=== PATIENT | female | born 1950 | race Caucasian/White ===

== ENCOUNTER 2017-04-20 08:00 | Day surgery (SDC) | payer MEDICARE, BC ==
[~2017-04-20 08:00] MED LIST: RINGERS SOLUTION,LACTATED 1,000 ML IV PRN
[2017-04-20] MEDS ORDERED: RINGERS SOLUTION,LACTATED 1,000 ML IV ONE (08:50)
[2017-04-20] MEDS ORDERED: RINGERS SOLUTION,LACTATED 1,000 ML IV PRN (09:26)
[2017-04-20 10:42] VITALS: BP 116/52
--- NOTE | 2017-04-20 13:44 | OR ---
Operative Report - Dictated Report Narrative: OPERATIVE REPORT DATE OF OPERATION: 04/20/2017 PREOPERATIVE DIAGNOSIS: No prior dedicated colon studies POSTOPERATIVE DIAGNOSIS: Diverticulosis. 3 mm polyp at 70 cm (pathology pending) OPERATION: Colonoscopy with hot biopsy forceps polypectomy at 70 cm SURGEON: Mira Palafox MD ANESTHESIA: ASHLEY Nowak CRNA INDICATIONS FOR PROCEDURE: The patient is a 66-year-old female referred by Dr. Richardson. The patient has had no previous dedicated colon studies. There is no family history of colon cancer. The patient is currently asymptomatic. FINDINGS: Mild to moderate sigmoid diverticulosis area 3 mm area of possible polypoid change 70 cm (pathology pending) NARRATIVE OF PROCEDURE: The patient was identified in the holding area, and prior to the administration of anesthetic, a multidisciplinary timeout was observed. With the patient in the left lateral position and after the administration of intravenous sedation, the perineum was inspected. There was no evidence of pilonidal disease or skin breakdown. The external appearance of the anus was normal. Sphincter tone was good. The flexible fiberoptic colonoscope was inserted into the rectum which was insufflated with air. The rectal mucosa and submucosal vascular pattern appeared normal, the prep was seen to be complete. The scope was advanced through the sigmoid colon, which contained numerous not impacted noninflamed diverticular openings. The scope was redirected up the descending colon, and around the splenic flexure where the triangular haustral architecture of the transverse colon was seen. The scope was advanced across the transverse colon, around the hepatic flexure to the cecum, where the confluence of tenia and the ileocecal valve were identified. The mucosa at this level appeared normal. The scope was then slowly withdrawn in a circular fashion so that all aspects of colonic mucosa were inspected. The colon was normal in course and caliber. The haustral architecture appeared well preserved throughout with no evidence of external compression. The mucosa and submucosal vascular pattern appeared normal, specifically there was no gross evidence to suggest colitis or inflammatory bowel disease and no AV malformations were seen. A 3 mm area of possible polypoid change and 70 cm was biopsied and thoroughly destroyed with electrocautery. The site was seen to be complete and hemostatic. The scope was gradually withdrawn to the level of the rectum. As much insufflated air as possible was removed. The scope was withdrawn from the patient and the procedure terminated. The patient tolerated the anesthetic and procedure well without complication and was transferred back to the ambulatory surgery area awake and in stable condition. The patient remained stable throughout a period of postoperative observation. She denied abdominal discomfort, was able to tolerate by mouth intake, and was up without assistance. I shared the operative findings with the patient and she was given copies of the photographs which appear in the medical record. She was discharged home with instructions not to engage in hazardous activity today , but may resume normal activity tomorrow, and advance diet as tolerated. She is to continue those medications as listed in the history and physical exam. I made arrangements to contact her with the biopsy reports and will make additional recommendations for treatment and follow-up based upon those results. Reviewed and electronically signed
== END 2017-04-20 08:01 ==
LOC: AMB 08:00
PROVIDERS: ATTEND Surgery
PROC: 0DBE8ZX Excision of Large Intestine, Via Natural or Artificial Opening Endoscopic, Diagnostic (ICD-10-PCS; principal; 2017-04-20 09:00)
DX: Z12.11 Encounter for screening for malignant neoplasm of colon (principal); K63.5 Polyp of colon; K57.30 Diverticulosis of large intestine without perforation or abscess without bleeding; I10 Essential (primary) hypertension; E78.5 Hyperlipidemia, unspecified; J45.909 Unspecified asthma, uncomplicated; F32.9 Major depressive disorder, single episode, unspecified; Z68.43 Body mass index [BMI] 50.0-59.9, adult

== ENCOUNTER 2021-01-01 06:56 | Observation (INO) ==
[~2021-01-01 06:56] MED LIST changes: +MORPHINE SULFATE 15 MG TABLET.SA PO PRN; -RINGERS SOLUTION,LACTATED 1,000 ML IV PRN; +ROPIVACAINE/CLONIDIN/KETOROLAC 50 ML SYRINGE IJ PRN; +TRANEXAMIC ACID 1,000 MG in NORMAL SALINE 100 ML IV PRN; +ceFAZolin SODIUM 1 GM VIAL IV PRN
[2021-01-01] MEDS ORDERED: ONDANSETRON HCL/PF 2 MG/ML VIAL ONE (07:33)
[2021-01-01] MEDS ORDERED: fentaNYL CITRATE/PF 50 MCG/ML AMPUL ONE (07:33)
[2021-01-01] MEDS ORDERED: LIDOCAINE HCL 20 ML VIAL ONE (07:33)
[2021-01-01] MEDS ORDERED: BUPIVACAINE HCL 50 ML VIAL IJ ONE (07:33)
[2021-01-01] MEDS ORDERED: PROPOFOL VIAL IV ONE (07:34)
[2021-01-01] MEDS ORDERED: ISOPROPYL ALCOHOL 480 APPL BTL MC ONE (07:38)
[2021-01-01] MEDS ORDERED: ceFAZolin SODIUM 1 GM VIAL ONE (07:39)
[2021-01-01] MEDS ORDERED: ROPIVACAINE/CLONIDIN/KETOROLAC 50 ML SYRINGE IJ ONE (07:39)
[2021-01-01] MEDS ORDERED: PROCHLORPERAZINE EDISYLATE 5 MG/ML VIAL IV PRN (07:43)
[2021-01-01] MEDS ORDERED: ONDANSETRON HCL/PF 2 MG/ML VIAL IV PRN ×2 (07:43→11:21)
[2021-01-01] MEDS ORDERED: diphenhydrAMINE HCL 50 MG/ML VIAL IV PRN ×2 (07:43→11:21)
[2021-01-01] MEDS ORDERED: HYDROmorphone HCL 2 MG/ML VIAL IV PRN (07:43)
[2021-01-01] MEDS ORDERED: NALOXONE HCL 0.4 MG/ML VIAL IV PRN (07:43)
--- NOTE | 2021-01-01 07:43 | ANES ---
Anesthesia Pre Procedure Eval Vitals/Labs: Last Vital Signs Temp 36.9 C 01/01/21 07:25 Pulse 67 01/01/21 07:25 Resp 14 01/01/21 07:25 BP 146/63 01/01/21 07:25 Pulse Ox 95 01/01/21 07:25 HOME MEDICATIONS Durable Medical Equipment See Dose Instructions .ROUTE .MEDSUPPLY #1 ea 06/01/19 [Last Taken Unknown] ascorbic acid (vitamin C) 1,000 mg tablet 1 g PO DAILY #30 tab 06/23/19 [Last Taken Unknown] albuterol sulfate 2.5 mg IH QID PRN #75 ml 10/03/19 [Last Taken Unknown] amlodipine 10 mg tablet See Rx Instructions .ROUTE .COMPLEX #90 unknown measurement unit code: tablet 06/26/20 [Last Taken 10/29/20] atorvastatin 10 mg tablet 10 mg PO HS #90 tab 08/30/20 [Last Taken Unknown] bupropion HCl 300 mg 24 hr tablet, extended release 300 mg PO DAILY #90 tab 09/12/20 [Last Taken Unknown] fluoxetine 40 mg capsule See Rx Instructions .ROUTE .COMPLEX #90 unknown measurement unit code: capsule 09/12/20 [Last Taken Unknown] lisinopril 40 mg tablet See Rx Instructions .ROUTE .COMPLEX #180 unknown measurement unit code: tablet 09/12/20 [Last Taken 10/29/20] aspirin 81 mg tablet,delayed release 81 mg PO DAILY 10/09/20 [Last Taken Unknown] Mucinex PO DAILY 10/29/20 [Last Taken Unknown] naproxen 375 mg tablet 375 mg PO Q8H PRN #60 tab 10/30/20 [Last Taken Unknown] potassium chloride 10 mEq tablet,extended release(part/cryst) See Rx Instructions .ROUTE .COMPLEX #180 unknown measurement unit code: tablet 11/26/20 [Last Taken Unknown] gabapentin 300 mg capsule 600 mg PO BID #180 cap 12/24/20 [Last Taken Unknown] metoprolol succinate 25 mg tablet,extended release 24 hr 25 mg PO DAILY #90 tab 12/24/20 [Last Taken Unknown] Allergies/Adverse Reactions: Allergies Allergy/AdvReac Type Severity Reaction Status Date / Time tolmetin sodium Allergy Severe Anaphylaxis Verified 01/01/21 07:33 [From Tolectin] meperidine AdvReac Mild N/V Verified 01/01/21 07:33 - Planned Procedure Planned Procedure: Right Arthroplasty Total Knee, Revision Medication List Reviewed:: Yes Allergies Verified: Yes Medical History (Last Reviewed 01/01/21 @ 07:41 by Omar Nowak CRNA) Loosening of prosthesis of right total knee replacement (Acute) Carpal tunnel syndrome on both sides (Resolved) Onset Date: Unknown JUAN on CPAP (Chronic) Onset Date: ~06/2017 9 cm H2O with heated humidifier Hypertension (Chronic) Onset Date: ~1979 Hyperlipidemia (Chronic) Onset Date: ~1979 Depression (Chronic) Onset Date: ~1979 Asthma (Chronic) Onset Date: ~1999 Arthritis (Chronic) Onset Date: ~2000 back, knees, hand Asthma attack (Acute) Onset Date: Unknown Bronchitis (Acute) Onset Date: Unknown Asthmatic bronchitis with exacerbation (Acute) Onset Date: Unknown DJD (degenerative joint disease), lumbosacral (Chronic) Onset Date: Unknown Morbid obesity (Chronic) Onset Date: Unknown Osteoarthritis (Chronic) Onset Date: Unknown Other problems (Chronic) Onset Date: Unknown Fracture of fibula, distal, right, closed (Acute) Onset Date: Unknown Fracture of lateral malleolus of fibula (Acute) Onset Date: Unknown Surgical History (Last Reviewed 01/01/21 @ 07:41 by Omar Nowak CRNA) Trigger finger, right (Resolved) Onset Date: ~11/02/17 Release of RT 3rd digit, RT 4th digit, RT 3rd digit MCP joint degenerative arthritis. GRMS by Dr. Barajas History of knee replacement (Resolved) Onset Date: ~07/09/[address] Hong History of knee replacement (Resolved) Onset Date: ~02/20/[address] Hong History of hysterectomy (Resolved) Onset Date: ~1984 H/O steroid therapy (Resolved) Onset Date: ~06/10/06 Also done 04/12/15. L4-5, L5-S1 H/O colonoscopy (Resolved) Onset Date: ~04/20/[address] Palafox - mild to moderate sigmoid diverticulosis, hyperplastic polyps. Recheck in 10 years. H/O knee surgery (Resolved) Onset Date: ~1993 arthroscopic, Left History of cataract surgery Onset Date: ~09/06 Dr Ramirez right and left Family History (Last Reviewed 01/01/21 @ 07:41 by Omar Nowak CRNA) Father , age 80 CVA (cerebral vascular accident) Hypertension Alzheimers disease Mother , age 70 Cancer renal cell with mets - Family Anesthesia History Family History:: no untoward family reactions to anesthesia, no familial bleeding tendencies, no family history of clotting disorders, no family history of premature - Airway/Neck/Teeth Within Normal Limits:: Yes Denture Type: Full upper Neck Exam: limited range of motion Mallampatti Score: 3 Thyromental (T-M) distance: > 6 cm Mandibulo Hyoid distance: > 3 cm - Respiratory Respiratory Physical: lungs clear Smoking Status: Never smoker Discussed smoking cessation including day of surgery: No Sleep Apnea currently treated: Yes - Cardiovascular Tolerate Activity: Fair Heart Sounds: S1 & S2, Regular - Gastrointestinal NPO since: mn - Anesthesia Assessment and Plan ASA Class: PS, III Anesthesia Type Plan: Block - Right ultrasound guided adductor canal nerve block for postop analgesia, Spinal
[2021-01-01] MEDS: RINGER'S SOLUTION,LACTATED 1,000 ML IV PRN ×3 (07:58→09:51)
[2021-01-01] MEDS ORDERED: DEXTROSE 5%-LACTATED RINGERS 1,000 ML IV PRN (11:21)
[2021-01-01] MEDS ORDERED: MORPHINE SULFATE 2 MG/ML DISP.SYRIN IV PRN (11:21)
[2021-01-01] MEDS ORDERED: ZOLPIDEM TARTRATE 5 MG TABLET PO PRN (11:21)
[2021-01-01] MEDS ORDERED: MAGNESIUM HYDROXIDE 30 ML UDC PO PRN (11:21)
[2021-01-01] MEDS ORDERED: ACETAMINOPHEN 500 MG TABLET PO PRN (11:21)
[2021-01-01] MEDS ORDERED: MAG HYDROX/ALUMINUM HYD/SIMETH 30 ML UDC PO PRN (11:21)
--- NOTE | 2021-01-01 11:21 | OR ---
Operative Report - Dictated Report Narrative: DATE OF PROCEDURE: 01/01/2021 PHYSICIAN: Arnel Eckert MD OD GRINDER OPERATOR: Evin Anguiano MD (provided an educated set of skilled hands that consisted with transfer, positioning, prepping, draping, traction, manipulation, irrigation, placement of implants, placement of instruments, closure of wounds, application of dressings, all of which could not be performed by the available surgical crew). 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 OPERATIONS AND PROCEDURES: Revision revision total knee arthroplasty, revision of surgical scar 25 cm. ANESTHESIA: Spinal plus regional plus periarticular local. ESTIMATED BLOOD LOSS: 100 mL TOURNIQUET TIME: 113 minutes at 325 mmHg. SPECIMENS: Implants for disposal, tissue for acute inflammation, culture x1. COMPLICATIONS: None. RETAINED IMPLANTS: DePuy Attune revision CRS size 5 femur cemented, 8 mm distal lateral augment, 4 mm distal medial, 8 mm posterior medial, and 4 mm posterior lateral augments attune revision press-fit stem 12 x 60 mm, attune revision porocoat fully coated femoral sleeve 30 mm, size 4 revision tibial baseplate rotating platform, revision tibial sleeve Porocoat fully coated 29 mm, revision press-fit stem 12 mm x 60 mm, CRS revision rotating platform insert size 5 x 18 mm crosslinked polyethylene. INDICATIONS FOR PROCEDURE: Mrs. Gore is a 70-year-old female who underwent a right total knee arthroplasty in the past. She was evaluated in the clinic with infection and loosening work up with noted tibial loosening without signs of infection. Infection workup was negative. Options for treatment were discussed including bracing, observation, and surgical revision. She wished to proceed with revision. The risks, benefits, and alternatives were discussed in clinic. The risk of , blood clots, bleeding, infection, nerve/tendon/blood vessel injury, malposition of implants, persistent pain, failure of implants, loosening, stiffness, need for additional procedures, and she wished to proceed. Consent was obtained in the clinic. PROCEDURE: After marking the correct extremity in the preoperative holding area, the patient was taken to the operating room. A timeout was performed. IV antibiotics consisting of Ancef was administered prior to procedure. A regional followed by spinal anesthetic was induced at my request by anesthesia. A Eldridge catheter was placed and a bump was placed under the surgical side buttock. A well-padded tourniquet was applied to the upper thigh. The leg was then prepped and draped in standard sterile fashion. She was noted to have range of motion of 0 to 110 degrees and had over 5 mm of gapping of varus and valgus stressing at all flexion points as well as an unstable drawer. After prepping and draping the leg in standard sterile fashion, exsanguinating the extremity and inflating the tourniquet to 325 mmHg, the previous anterior incision was excised over a length of 25 cm. Sharp dissection was carried through the skin. There were no retained nonabsorbable sutures. The medial retinaculum was marked out and a paramedial arthrotomy was made. There was notable effusion, but no gross signs of purulence or infectious appearing tissues. A near complete synovectomy was performed as there were multiple loose chondral bodies and synovial inflammation. The scar tissue was excised. The gutters were cleaned, and the previous polyethylene was excised. The knee was hyperflexed and attention was turned to the femur. A series of osteotomes were utilized in order to disengage the cement bone implant interface, removing the femoral component. We then turned our attention to the tibia. A series of osteotomes and saw was utilized in order to free the tissue to best of our abilities. The tibia was then removed. The implants revealed no signs of significant wear or damage. It was noted that the posterior cruciate ligament was disrupted. We then proceeded to prepare the tibia. The entry reamer up to a size 12 tibial reamer was utilized in order to repair the tibial canal. An entry reamer for the implant as well as a 29mm broach was utilized which gave good stability with good fill of the proximal tibial metaphysis. The proximal tibia was then cleaned and cut in order to provide a flat surface. The trial tray size 4 was then impacted with the trial sleeve and this was secured with a punch. Once it was felt that we prepared the tibia, we turned our attention to the femur. A series of reamers were utilized in order to open up the femoral canal up to a size 12. The femoral sleeve with broach was utilized up to a size 30mm. A clean-up distal cut was made, followed by the 3-in-1 cutting block, which was placed under tension in both flexion and extension in order to make sure that we had a symmetrical box. This was pinned in slight external rotation. Clean-up cuts were then made for augments, 4 mm distal lateral, 8 mm distal medial and 8 mm posterior medial and 4 mm posterior lateral. The trial components were assembled and impacted for trial. A series of inserts were utilized up to a size 18, which gave good stability in flexion and was able to reach maximal extension without hyperextension, stable to varus and valgus stressing as well as drawer. The patella tracked appropriately and overall, it was felt these were the appropriate implants. The implants were removed. The tissue was thoroughly irrigated with pulsatile saline irrigation. Prior to this, the tissue was sent to pathology for acute inflammation, was noted to have less than 5 neutrophils per high-powered field, and culture was also obtained and sent to pathology. Once the bone was thoroughly irrigated and dried, a periarticular joint injection of ropivacaine, Toradol, and epinephrine was placed. The cement was vacuum mixed per ticket puller's instructions. The implants were assembled on the back table, and cement was placed on the appropriate surfaces, avoiding any cement on the ingrown surface or the stems, and the implants were then impacted. Once the cement was fully cured, the extruded cement was removed. The final polyethylene insert was placed. The knee was again placed through range of motion and was able to reach full extension, flexion to 120 degrees with appropriate tracking of the patella, and no instability. A drain was placed exiting superolaterally. The tourniquet was deflated. It was noted that there is some bleeding which was evaluated and did not appear to be arterial in nature but significant from around the bony cuts. Using pressure hemostasis was obtained. Capsule was closed with interrupted #1 Vicryl. The deep tissues with 0 Vicryl, subcutaneous tissue with 3-0 Vicryl and 3-0 Monocryl, and the skin with a Dermabond dressing. A 4 x 4s, Sof-Rol and a full leg Darien was applied and the patient was awoken and transferred to postanesthesia care unit in stable condition. All sponge, needle, and instrument counts were correct prior to closing the wounds.
--- NOTE | 2021-01-01 11:56 | ANES ---
Post Anesthesia Discharge - Transfer of Care Transfer of Care handoff given to nurse: Yes - Discharge from PACU Discharge from PACU when meets criteria: Yes - Discharge to ASU Discharge to ASU-no complications/pt stable: Yes
--- NOTE | 2021-01-01 11:59 | ANES ---
Anesthesia Procedure Note Procedure Note: ANESTHESIA PROCEDURE NOTE Date of Procedure: 01/01/2021. Time of procedure: 804. Performed by: Omar Nowak CRNA Cask Maker: None. 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 Post procedure diagnosis: Same. Procedure: Right ultrasound guided adductor canal block for postoperative analgesia. Indications: The patient is a 70-year-old female, requesting right ultrasound- guided abductor canal nerve block for postoperative analgesia related to maddi ion right total knee arthroplasty. Findings: See below. Details of the procedure: The tissue over the intended target site was cleansed with ChloraPrepand draped in a sterile fashion. 2 ml Lidocaine 1 % was infiltrated to the skin and subcutaneous tissue at the intended target site. Under sterile technique and ultrasound guidance a 20-gauge block needle was inserted through the right sartorius muscle to the saphenous nerve just anterior and medial to the superficial femoral artery and vein. 15 mL's of 0.5% bupivacaine was injected after negative aspiration for blood. Needle tip and spread of local anesthetic surrounding the saphenous nerve was observed throughout the injection with real time ultrasound visualization. The needle was then removed intact. No complications were noted. The images were retained in the Hospital medical database. EBL: Minimal. Fluids: N/A. Specimen: N/A. Post procedure condition: The patient tolerated the procedure well. No complications were noted. Thank you for this consultation. Omar Nowak CRNA
[2021-01-01] MEDS: KETOROLAC TROMETHAMINE 15 MG/ML VIAL IV SCH ×3 (13:00→22:32)
[2021-01-01] MEDS: oxyCODONE HCL/ACETAMINOPHEN 1 TAB TABLET PO PRN ×2 (13:22→19:27)
[2021-01-01] MEDS: ceFAZolin SODIUM 1 GM in DEXTROSE 5 % IN WATER 100 ML IV SCH ×4 (13:28→18:45)
[2021-01-01] MEDS ORDERED: SENNOSIDES/DOCUSATE SODIUM 1 TAB TABLET PO SCH (21:00)
[2021-01-02] MEDS: oxyCODONE HCL/ACETAMINOPHEN 1 TAB TABLET PO PRN ×2 (00:01→08:51)
[2021-01-02] MEDS: ceFAZolin SODIUM 1 GM in DEXTROSE 5 % IN WATER 100 ML IV SCH ×2 (01:29)
[2021-01-02] MEDS: KETOROLAC TROMETHAMINE 15 MG/ML VIAL IV SCH ×2 (04:43→11:38)
[2021-01-02 06:24] LABS: Hemoglobin 10.2 gm/dL (12.5-16.0); Mean Cell Volume 89.9 fl (78-100); Mean Corpuscular Hemoglobin 28.7 pg (27-31); Mean Corpuscular Hgb Conc 31.9 g/dl (32-36); Mean Platelet Volume 9.1 fl (8-12.5); Platelet Count 150 K/mm3 (150-450); Red Blood Count 3.56 M/mm3 (4.2-5.4); Red Cell Distribution Width 13.5 % (11.5-14.0); White Blood Count 9.8 K/mm3 (4.0-10.5)
[2021-01-02 06:34] LABS: Anion Gap 9.4 mmol/L (6.8-13.8); BUN/Creatinine Ratio 18.5 (9.0-21.6); Calcium * 8.3 mg/dL (7.9-10.9); Carbon Dioxide 29.4 mmol/L (24-32.6); Estimated Creat Clear 35.5; Potassium 3.8 mmol/L (3.4-4.6)
[2021-01-02] MEDS ORDERED: amLODIPine BESYLATE 10 MG TABLET PO SCH (09:00)
[2021-01-02] MEDS ORDERED: buPROPion HCL 150 MG TAB.SR.24H PO SCH (09:00)
[2021-01-02] MEDS ORDERED: ALBUTEROL SULFATE 2.5 MG/0.5 ML VIAL.NEB IH PRN (09:25)
[2021-01-02] MEDS ORDERED: LISINOPRIL 40 MG TABLET PO SCH (09:30)
[2021-01-02] MEDS ORDERED: METOPROLOL SUCCINATE 25 MG TABLET.SA PO SCH (09:30)
[2021-01-02] MEDS ORDERED: GABAPENTIN 300 MG CAPSULE PO SCH (09:30)
[2021-01-02] MEDS ORDERED: POTASSIUM CHLORIDE 10 MEQ TABLET.SA PO SCH (09:30)
[2021-01-02] MEDS ORDERED: GABAPENTIN 600 MG TABLET PO SCH (09:45)
[2021-01-02] MEDS ORDERED: ENOXAPARIN SODIUM 40 MG/0.4 ML SYRG SC SCH (10:21)
--- NOTE | 2021-01-02 11:59 | DS ---
(1) Status post revision of total replacement of right knee Problem: Acute (2) Asthma Problem: Chronic Qualifiers: (3) DJD (degenerative joint disease), lumbosacral Problem: Chronic (4) Depression Problem: Chronic Qualifiers: (5) Hyperlipidemia Problem: Chronic (6) Hypertension Problem: Chronic Qualifiers: (7) Morbid obesity Problem: Chronic (8) JUAN on CPAP Problem: Chronic Date of Discharge:: 01/02/21 Hospital Course: Mrs. Gore was admitted to the floor after undergoing revision right total knee arthroplasty. Tolerated this well. Was admitted to the floor postoperatively for 24 hours of IV antibiotics, pain control, medical comanagement, and occupational and physical therapy. OT and PT were consulted to assist with activities of daily living and ambulation. Was made weightbearing as tolerated with range of motion as tolerated. Pain was initially controlled with IV regimen. This was transitioned to oral once tolerating a by mouth intake. Was resumed on home diet and medications. A Eldridge catheter was inserted in the operating room which was discontinued by postoperative day 1. A drain was placed intraoperatively into the knee which was discontinued on postoperative day 1. Lovenox, SCDs, and MARILYNN hose were utilized for DVT prophylaxis. Vital signs remained stable to the hospital course. Labs were obtained which showed a final hemoglobin of 10.2 grams. BMP was reviewed and was stable. Physical examination throughout the hospital course showed an extremity that had sensation that was intact to light touch, palpable pulses, a benign wound, motor intact to the toes, ankle, and knee. Knee range of motion was approximately 5 degrees to 60 degrees. Once an oral pain regimen was tolerated and physical therapy goals were met, it was felt that they were stable for discharge to home. Instructions: Continue with weightbearing as tolerated and range of motion as tolerated. It is okay to shower and get the wound wet as long as there is no drainage from the wound. Do not bathe or soak the wound. If there is any drainage from the wound keep the wound clean and dry and cover with dry gauze and tape. Change every 2- 3 days as needed if there is any drainage. Cover wound while showering if there is any drainage. Continue with physical therapy. Resume home diet. Report any fever over 101.5 Fahrenheit, uncontrolled pain, increased drainage, foul odor of drainage, new or increased calf pain or shortness of breath, or any other significant complaints. A 325mg daily aspirin will be started after finishing anticoagulation if not allergic. Continue with MARILYNN hose on the operative extremity until instructed otherwise. No driving until instructed otherwise. Follow up in approximately 2-3 weeks. Procedures Performed: see notes below List Procedures: Revision right knee arthroplasty Results and Findings: Lab Pending Results 01/02/21 06:14: WBC 9.8, RBC 3.56 L, Hgb 10.2 L, Hct 32.0 L, MCV 89.9, MCH 28.7, MCHC 31.9 L, RDW 13.5, Plt Count 150, MPV 9.1 01/02/21 06:14: Sodium 140, Plasma Sodium 140, Potassium 3.8, Chloride 105, Carbon Dioxide 29.4, Anion Gap 9.4, BUN 20, Creatinine 1.08, Est GFR (Non-Af Amer) 53 L, BUN/Creatinine Ratio 18.5, Random Glucose 127 H, Calcium 8.3 Disposition: SNF Condition: Good Discharge Activity: Activity as tolerated, Weight bearing Discharge Diet: General/regular food Fpc Therapy: Physical Therapy, Occupation Therapy Referrals: Kimmy Anglin MD [Primary Care Provider] - Additional Patient Instructions (free text): To [facility] for therapies, PT and OT to evaluate and treat. Follow up [facility] Orthopedic office appointment on ThursdayJanuary 16 at 9:30am. Prescriptions (Any new or edited meds): Enoxaparin Sodium [Lovenox] 40 mg SC Q24H #7 disp.syrin Transmission Status: Received by [facility] oxyCODONE HCL/ACETAMINOPHEN [Percocet 5 MG/325 MG] 1 - 2 tab PO Q4H PRN #40 tab PRN Reason: Moderate Pain (Pain Scale 4-6) Transmission Status: Received by [facility] Sennosides/Docusate Sodium [Senokot-S] 2 tab PO HS #60 tab Transmission Status: Received by [facility] Complete Home Medications List: Complete Home Medication List: Durable Medical Equipment See Dose Instructions .ROUTE .MEDSUPPLY #1 ea 06/01/19 albuterol sulfate 2.5 mg IH QID PRN #75 ml 10/03/19 atorvastatin 10 mg tablet 10 mg PO HS #90 tab 08/30/20 bupropion HCl 300 mg 24 hr tablet, extended release 300 mg PO DAILY #90 tab 09/12/20 aspirin 81 mg tablet,delayed release 81 mg PO DAILY 10/09/20 guaiFENesin [Mucinex] 600 mg PO DAILY PRN 10/29/20 naproxen 375 mg tablet 375 mg PO Q8H PRN #60 tab 10/30/20 gabapentin 300 mg capsule 600 mg PO BID #180 cap 12/24/20 metoprolol succinate 25 mg tablet,extended release 24 hr 25 mg PO DAILY #90 tab 12/24/20 FLUoxetine HCL [Prozac] 40 mg PO HS 01/01/21 Lisinopril [Zestril] 40 mg PO BID 01/01/21 Potassium Chloride [Klor-Con M10] 10 meq PO BID 01/01/21 amLODIPine BESYLATE [Norvasc] 10 mg PO DAILY 01/01/21 Enoxaparin Sodium [Lovenox] 40 mg SC Q24H #7 disp.syrin 01/02/21 Cyquh-Wxzevlb-Zzgbcxsl Tablet 1 tab DAILY 01/02/21 Sennosides/Docusate Sodium [Senokot-S] 2 tab PO HS #60 tab 01/02/21 oxyCODONE HCL/ACETAMINOPHEN [Percocet 5 MG/325 MG] 1 - 2 tab PO Q4H PRN #40 tab 01/02/21 Forms: Patient Portal Registration
[2021-01-02 12:56] VITALS: BP 144/54
[2021-01-02] MEDS ORDERED: FLUoxetine HCL 20 MG CAPSULE PO SCH (21:00)
[2021-01-02] MEDS ORDERED: ROSUVASTATIN CALCIUM 5 MG TABLET PO SCH (21:00)
== END 2021-01-02 13:10 ==
LOC: SUR 06:56 → MS 06:56 → EDSTATUS 08:45
PROVIDERS: ADMIT Orthopaedic Surgery; ATTEND Orthopaedic Surgery
DX: F32.9 Major depressive disorder, single episode, unspecified; I10 Essential (primary) hypertension; M47.898 Other spondylosis, sacral and sacrococcygeal region; E66.01 Morbid (severe) obesity due to excess calories; Z96.651 Presence of right artificial knee joint; G47.33 Obstructive sleep apnea (adult) (pediatric); M25.561 Pain in right knee; T84.032A Mechanical loosening of internal right knee prosthetic joint, initial encounter; J45.909 Unspecified asthma, uncomplicated